=== PATIENT | female | born 1965 | race Caucasian/White ===

== ENCOUNTER → 2017-03-16 | Outpatient (CLI) | payer OTHER, MEDICARE ==
[~2017-03-16] MED LIST: CYCL-259 PO; DULO60CA7 PO; GABA300C PO; HYDR-3307 PO; LEVO75TA PO; LOPRESSOR PO; TRAM50TA2 PO
[2017-03-16 10:47] LABS: HEMATOCRIT 45.1 % (34.6-47.8); HEMOGLOBIN 15.3 g/dL (11.7-16.4); WHITE BLOOD COUNT 8.1 x10^3/uL (3.4-10)
[2017-03-16 10:50] LABS: ASPARTATE AMINO TRANSFERASE 30 U/L (15-37); BLOOD UREA NITROGEN 11 mg/dL (7-18)
== END | disposition home or self-care (01) ==
LOC: STAR 09:17
PROVIDERS: ATTEND Neurological Surgery
DX: Z01.818 Encounter for other preprocedural examination (principal); R94.31 Abnormal electrocardiogram [ECG] [EKG]; I10 Essential (primary) hypertension; J98.4 Other disorders of lung; M51.36 Other intervertebral disc degeneration, lumbar region; Z87.81 Personal history of (healed) traumatic fracture; R79.1 Abnormal coagulation profile
CPT/HCPCS: 36415; 71020; 80053; 81003; 85025; 85610; 85730; 93005

== ENCOUNTER 2017-03-22 05:38 | Inpatient (IN) | payer OTHER, MEDICARE ==
[~2017-03-22] VITALS: Ht 160 cm; Wt 98.0 kg
[2017-03-22] MEDS ORDERED: EPINEPHRINE 1 MG/ML, 1ML ONE ×2 (06:18→07:51)
[2017-03-22] MEDS ORDERED: BUPIVACAINE/PF 0.5% ONE (06:18)
[2017-03-22] MEDS ORDERED: THROMBIN 5,000 UNIT VIAL TP ONE (06:18)
[2017-03-22] MEDS ORDERED: BACITRACIN 50,000 UNIT ONE (06:19)
[2017-03-22] MEDS ORDERED: HEPARIN 1,000 UNITS/ML, 30ML ONE (06:22)
[2017-03-22 06:38] VITALS: BP 160/84
[2017-03-22] MEDS ORDERED: LIDOCAINE GEL 2%, 5ML ONE (06:41)
[2017-03-22] MEDS ORDERED: EPHEDRINE 50 MG/ML, 1ML ONE ×2 (06:47→07:51)
[2017-03-22] MEDS ORDERED: PROPOFOL 50 ML ONE ×3 (06:47→09:22)
[2017-03-22] MEDS ORDERED: FENTANYL PF 250 MCG/5ML ONE (06:47)
[2017-03-22] MEDS ORDERED: MIDAZOLAM 1 MG/ML, 2ML ONE (06:47)
[2017-03-22] MEDS ORDERED: KETAMINE 10 MG/ML, 20ML ONE (06:49)
[2017-03-22] MEDS ORDERED: LIDOCAINE-MPF 2% ,5ML ONE ×2 (06:50→08:15)
[2017-03-22] MEDS ORDERED: PROPOFOL 10 MG/ML, 20ML ONE (06:51)
[2017-03-22] MEDS ORDERED: CEFAZOLIN 1,000 MG ONE (06:51)
[2017-03-22] MEDS ORDERED: DEXAMETHASONE 4 MG/ML, 1ML ONE (06:51)
[2017-03-22] MEDS ORDERED: ONDANSETRON 2MG/ML, 2ML ONE (06:51)
[2017-03-22] MEDS ORDERED: GLYCOPYRROLATE 0.2MG/1ML, 5ML ONE (07:02)
[2017-03-22] MEDS ORDERED: ROCURONIUM 10 MG/ML,10ML ONE (07:02)
[2017-03-22] MEDS ORDERED: PHENYLEPHRINE 10 MG/ML ONE (07:51)
[2017-03-22] MEDS ORDERED: OXYcodone 5 MG/5 ML ORAL.SOL UDC PO PRN ×2 (08:00→11:00)
[2017-03-22] MEDS ORDERED: morphine SULFATE 10 MG/ML, 1ML IV PRN (08:00)
[2017-03-22] MEDS ORDERED: MEPERIDINE/PF 25MG/0.5ML IVPush PRN (08:00)
[2017-03-22] MEDS ORDERED: METOPROLOL 1 MG/ML, 5ML IV PRN (08:00)
[2017-03-22] MEDS ORDERED: MIDAZOLAM 1 MG/ML, 2ML IV PRN ×2 (08:00→11:00)
[2017-03-22] MEDS ORDERED: hydrALAzine 20 MG/ML, 1ML IV PRN (08:00)
[2017-03-22] MEDS ORDERED: LORazepam 2 MG/ML, 1ML IVPush PRN (08:00)
[2017-03-22] MEDS ORDERED: ONDANSETRON 2MG/ML, 2ML IVPush PRN ×2 (08:00→09:30)
[2017-03-22] MEDS ORDERED: ALBUTEROL/IPRATROPIUM 2.5MG/0.5MG, 3 ML NPPB PRN (08:00)
[2017-03-22] MEDS ORDERED: PROMETHAZINE 25 MG/ML, 1ML IV PRN (08:00)
[2017-03-22] MEDS ORDERED: ACETAMINOPHEN 325 MG TABLET PO PRN ×2 (08:00→11:00)
[2017-03-22] MEDS ORDERED: EPHEDRINE 50 MG/ML, 1ML IVPush PRN (08:00)
[2017-03-22] MEDS ORDERED: DIAZEPAM 5 MG/ML, 2ML IVPush PRN (08:00)
[2017-03-22] MEDS ORDERED: FENTANYL PF 100 MCG/2ML IV PRN (08:00)
[2017-03-22] MEDS ORDERED: SUCCINYLCHOLINE 20 MG/ML, 10ML ONE (08:28)
[2017-03-22] MEDS ORDERED: PHARMACY MAY ADJ FOR RENAL FX MC PRN (09:30)
[2017-03-22] MEDS ORDERED: HYDROcodone/APAP 5/325 TABLET PO PRN (09:30)
[2017-03-22] MEDS ORDERED: D5%-0.9% NACL+KCL 20MEQ 1,000 ML IV SCH (09:30)
[2017-03-22] MEDS ORDERED: MAGNESIUM HYDROXIDE 8%, 30ML UDC PO PRN (09:30)
[2017-03-22] MEDS ORDERED: PROMETHAZINE 25 MG/ML, 1ML IM PRN (09:30)
[2017-03-22] MEDS ORDERED: SENNA/DOCUSATE TABLET PO PRN (09:30)
[2017-03-22] MEDS ORDERED: DIPHENHYDRAMINE 50 MG/ML, 1ML IVPush PRN (09:30)
[2017-03-22] MEDS ORDERED: DIPHENHYDRAMINE 50 MG CAPSULE PO PRN (09:30)
[2017-03-22] MEDS ORDERED: BISACODYL 10 MG SUPP PR PRN (09:30)
[2017-03-22] MEDS ORDERED: OXYcodone/APAP 5/325MG TABLET PO PRN (09:30)
[2017-03-22] MEDS ORDERED: CYCLOBENZAPRINE 10 MG TABLET PO PRN ×2 (09:30)
[2017-03-22] MEDS ORDERED: OXYcodone 5 MG/5 ML ORAL.SOL UDC ONE (10:20)
[2017-03-22] MEDS ORDERED: FENTANYL PF 100 MCG/2ML ONE (10:21)
[2017-03-22] MEDS ORDERED: ACETAMINOPHEN 650 MG/20.3 ML UDC ONE (10:21)
[2017-03-22] MEDS: FENTANYL PF 100 MCG/2ML IV PRN ×3 (10:25→10:44)
[2017-03-22] MEDS ORDERED: morphine SULFATE 10 MG/ML, 1ML ONE (10:48)
[2017-03-22] MEDS: morphine SULFATE 10 MG/ML, 1ML IV PRN ×3 (11:13→13:15)
[2017-03-22 12:13] VITALS: BP 103/54
[2017-03-22 12:15] VITALS: BP 103/54
[2017-03-22 13:15] VITALS: BP 123/68
[2017-03-22 14:13] LABS: HEMOGLOBIN 14.1 g/dL (11.7-16.4); WHITE BLOOD COUNT 13.5 x10^3/uL (3.4-10)
[2017-03-22 14:19] LABS: BLOOD UREA NITROGEN 14 mg/dL (7-18)
[2017-03-22 14:47] LABS: ASPARTATE AMINO TRANSFERASE 33 U/L (15-37)
[2017-03-22] MEDS: GABAPENTIN 300 MG CAPSULE PO SCH ×2 (15:33→21:18)
[2017-03-22] MEDS: CEFAZOLIN PMX 1GM/50ML 50 ML IVPB SCH ×2 (15:57→23:25)
[2017-03-22] MEDS: morphine SULFATE 10 MG/ML, 1ML IVPush PRN ×2 (16:49→21:21)
[2017-03-22] MEDS ORDERED: METOPROLOL TARTRATE 50 MG TABLET ONE (21:05)
[2017-03-22] MEDS: SODIUM CHLORIDE FLUSH 10ML SYR IVF SCH (21:18)
[2017-03-22] MEDS: METOPROLOL TARTRATE 100 MG TABLET PO SCH (21:19)
[2017-03-22 21:22] VITALS: BP 127/70
[2017-03-23] VITALS (7 sets, daily range): BP systolic 98–137; BP diastolic 53–79
[2017-03-23] MEDS: morphine SULFATE 10 MG/ML, 1ML IVPush PRN (01:46)
[2017-03-23] MEDS: CEPHALEXIN 500 MG CAPSULE PO SCH ×4 (06:20→21:22)
[2017-03-23] MEDS: LEVOTHYROXINE 75 MCG TABLET PO SCH (06:20)
[2017-03-23] MEDS: ENOXAPARIN 40 MG/0.4 ML SQ SCH (06:20)
[2017-03-23] MEDS: SODIUM CHLORIDE FLUSH 10ML SYR IVF SCH ×2 (08:48→21:21)
[2017-03-23] MEDS: GABAPENTIN 300 MG CAPSULE PO SCH ×3 (08:49→21:22)
[2017-03-23] MEDS: DULOXETINE 30 MG CAPSULE.DR PO SCH (08:49)
[2017-03-23] MEDS: METOPROLOL TARTRATE 100 MG TABLET PO SCH ×2 (08:49→21:22)
[2017-03-23] MEDS: HYDROcodone/APAP 10/325 MG TABLET PO PRN ×2 (10:59→21:21)
[2017-03-24 01:19] VITALS: BP 142/80
[2017-03-24] MEDS: HYDROcodone/APAP 10/325 MG TABLET PO PRN ×3 (05:25→21:03)
[2017-03-24] MEDS: LEVOTHYROXINE 75 MCG TABLET PO SCH (05:25)
[2017-03-24] MEDS: ENOXAPARIN 40 MG/0.4 ML SQ SCH (05:25)
[2017-03-24] MEDS: CEPHALEXIN 500 MG CAPSULE PO SCH ×4 (05:25→21:03)
[2017-03-24 06:13] LABS: HEMATOCRIT 35.9 % (34.6-47.8); HEMOGLOBIN 12.2 g/dL (11.7-16.4); WHITE BLOOD COUNT 13.2 x10^3/uL (3.4-10)
[2017-03-24 06:35] LABS: BLOOD UREA NITROGEN 11 mg/dL (7-18)
[2017-03-24 07:48] VITALS: BP 114/64
[2017-03-24] MEDS: SODIUM CHLORIDE FLUSH 10ML SYR IVF SCH ×2 (08:15→21:06)
[2017-03-24] MEDS: DULOXETINE 30 MG CAPSULE.DR PO SCH (08:15)
[2017-03-24] MEDS: GABAPENTIN 300 MG CAPSULE PO SCH ×3 (08:15→21:03)
[2017-03-24] MEDS: METOPROLOL TARTRATE 100 MG TABLET PO SCH ×2 (08:15→21:03)
[2017-03-24 14:25] VITALS: BP 122/71
[2017-03-24 19:22] VITALS: BP 126/74
[2017-03-25 01:16] VITALS: BP 123/68
[2017-03-25] MEDS: ENOXAPARIN 40 MG/0.4 ML SQ SCH (05:54)
[2017-03-25] MEDS: CEPHALEXIN 500 MG CAPSULE PO SCH ×4 (05:54→21:00)
[2017-03-25] MEDS: LEVOTHYROXINE 75 MCG TABLET PO SCH (05:54)
[2017-03-25] MEDS: HYDROcodone/APAP 10/325 MG TABLET PO PRN ×3 (06:34→20:14)
[2017-03-25 07:26] LABS: HEMATOCRIT 36.8 % (34.6-47.8); HEMOGLOBIN 12.2 g/dL (11.7-16.4); WHITE BLOOD COUNT 9.5 x10^3/uL (3.4-10)
[2017-03-25 07:44] VITALS: BP 144/80
[2017-03-25] MEDS: SODIUM CHLORIDE FLUSH 10ML SYR IVF SCH ×2 (09:29→21:00)
[2017-03-25] MEDS: DULOXETINE 30 MG CAPSULE.DR PO SCH (09:30)
[2017-03-25] MEDS: GABAPENTIN 300 MG CAPSULE PO SCH ×3 (09:30→21:00)
[2017-03-25] MEDS: METOPROLOL TARTRATE 100 MG TABLET PO SCH ×2 (09:30→21:00)
[2017-03-25] MEDS ORDERED: FUROSEMIDE 20 MG/2 ML IV ONE (12:30)
[2017-03-25 15:16] VITALS: BP 136/84
[2017-03-25 20:08] VITALS: BP 162/84
[2017-03-25] MEDS: LACTATED RINGERS 1,000 ML IV SCH (23:55)
[2017-03-26] MEDS: HYDROcodone/APAP 10/325 MG TABLET PO PRN ×2 (00:11→23:21)
[2017-03-26 03:55] VITALS: BP 109/63
[2017-03-26 05:23] LABS: HEMATOCRIT 33.9 % (34.6-47.8); HEMOGLOBIN 11.5 g/dL (11.7-16.4); WHITE BLOOD COUNT 8.4 x10^3/uL (3.4-10)
[2017-03-26 05:32] LABS: BLOOD UREA NITROGEN 9 mg/dL (7-18)
[2017-03-26] MEDS: LEVOTHYROXINE 75 MCG TABLET PO SCH (05:58)
[2017-03-26] MEDS: CEPHALEXIN 500 MG CAPSULE PO SCH ×4 (05:58→21:00)
[2017-03-26] MEDS: GABAPENTIN 300 MG CAPSULE PO SCH ×3 (07:31→21:00)
[2017-03-26] MEDS: DULOXETINE 30 MG CAPSULE.DR PO SCH (07:31)
[2017-03-26] MEDS: METOPROLOL TARTRATE 100 MG TABLET PO SCH ×2 (07:56→21:00)
[2017-03-26] MEDS: SODIUM CHLORIDE FLUSH 10ML SYR IVF SCH ×3 (07:56→21:00)
[2017-03-26 07:59] VITALS: BP 139/85
[2017-03-26] MEDS: morphine SULFATE 10 MG/ML, 1ML IVPush PRN (09:13)
[2017-03-26] MEDS: METHOCARBAMOL 750 MG in DEXTROSE 5% 100 ML IV SCH ×3 (10:31→21:00)
[2017-03-26] MEDS ORDERED: ONDANSETRON 2MG/ML, 2ML ONE (14:14)
[2017-03-26] MEDS ORDERED: PROPOFOL 10 MG/ML, 20ML ONE (14:14)
[2017-03-26] MEDS ORDERED: DEXAMETHASONE 4 MG/ML, 1ML ONE (14:14)
[2017-03-26] MEDS ORDERED: FENTANYL PF 100 MCG/2ML ONE ×2 (14:14→16:39)
[2017-03-26] MEDS ORDERED: FENTANYL PF 250 MCG/5ML ONE (14:14)
[2017-03-26] MEDS ORDERED: MIDAZOLAM 1 MG/ML, 2ML ONE (14:14)
[2017-03-26] MEDS ORDERED: CEFAZOLIN 1,000 MG ONE (14:14)
[2017-03-26] MEDS ORDERED: PHENYLEPHRINE 10 MG/ML ONE (14:14)
[2017-03-26] MEDS ORDERED: ROCURONIUM 10 MG/ML,10ML ONE (14:14)
[2017-03-26] MEDS ORDERED: DIAZEPAM 5 MG/ML, 2ML IVPush PRN (15:30)
[2017-03-26] MEDS ORDERED: PROMETHAZINE 25 MG/ML, 1ML IV PRN (15:30)
[2017-03-26] MEDS ORDERED: ONDANSETRON 2MG/ML, 2ML IVPush PRN ×2 (15:30→17:00)
[2017-03-26] MEDS ORDERED: ACETAMINOPHEN 325 MG TABLET PO PRN (15:30)
[2017-03-26] MEDS ORDERED: MEPERIDINE/PF 25MG/0.5ML IVPush PRN (15:30)
[2017-03-26] MEDS ORDERED: LABETALOL 5MG/ML, 20ML IV PRN (15:30)
[2017-03-26] MEDS ORDERED: OXYcodone 5 MG/5 ML ORAL.SOL UDC PO PRN (15:30)
[2017-03-26] MEDS ORDERED: morphine SULFATE 10 MG/ML, 1ML ONE ×2 (16:39→17:55)
[2017-03-26] MEDS: FENTANYL PF 100 MCG/2ML IV PRN ×2 (16:55→17:05)
[2017-03-26] MEDS ORDERED: PHARMACY MAY ADJ FOR RENAL FX MC PRN (17:00)
[2017-03-26] MEDS ORDERED: OXYcodone/APAP 5/325MG TABLET PO PRN (17:00)
[2017-03-26] MEDS ORDERED: morphine SULFATE 10 MG/ML, 1ML IVPush PRN (17:00)
[2017-03-26] MEDS: morphine SULFATE 10 MG/ML, 1ML IV PRN ×4 (17:00→17:55)
[2017-03-26] MEDS ORDERED: METHOCARBAMOL 750 MG TABLET PO PRN (17:00)
[2017-03-26] MEDS ORDERED: HYDROcodone/APAP 5/325 TABLET PO PRN (17:00)
[2017-03-26] MEDS ORDERED: BISACODYL 10 MG SUPP PR PRN (17:00)
[2017-03-26] MEDS ORDERED: PROMETHAZINE 25 MG/ML, 1ML IM PRN (17:00)
[2017-03-26] MEDS ORDERED: LABETALOL 5MG/ML, 20ML IVPush PRN (17:00)
[2017-03-26] MEDS ORDERED: SENNA/DOCUSATE TABLET PO PRN (17:00)
[2017-03-26] MEDS ORDERED: METOPROLOL 1 MG/ML, 5ML ONE (17:48)
[2017-03-26] MEDS: METOPROLOL 1 MG/ML, 5ML IV PRN ×3 (17:50→18:15)
[2017-03-26] MEDS ORDERED: OXYcodone 5 MG/5 ML ORAL.SOL UDC ONE (18:17)
[2017-03-26 19:00] VITALS: BP 124/89
[2017-03-26] MEDS: D5%-0.9% NACL+KCL 20MEQ 1,000 ML IV SCH (19:00)
[2017-03-26] MEDS: LACTATED RINGERS 1,000 ML IV SCH (19:55)
[2017-03-26] MEDS: CEFAZOLIN PMX 1GM/50ML 50 ML IVPB SCH (22:59)
[2017-03-26 23:30] VITALS: BP 120/56
[2017-03-27] MEDS: METHOCARBAMOL 750 MG in DEXTROSE 5% 100 ML IV SCH ×4 (03:21→20:56)
[2017-03-27 03:28] VITALS: BP 114/68
[2017-03-27] MEDS: HYDROcodone/APAP 10/325 MG TABLET PO PRN ×5 (04:26→22:50)
[2017-03-27 05:20] LABS: HEMATOCRIT 31.8 % (34.6-47.8); HEMOGLOBIN 10.5 g/dL (11.7-16.4); WHITE BLOOD COUNT 11.3 x10^3/uL (3.4-10)
[2017-03-27] MEDS: LEVOTHYROXINE 75 MCG TABLET PO SCH (06:00)
[2017-03-27] MEDS: CEFAZOLIN PMX 1GM/50ML 50 ML IVPB SCH (06:35)
[2017-03-27 08:19] VITALS: BP 152/81
[2017-03-27] MEDS: DULOXETINE 30 MG CAPSULE.DR PO SCH (08:42)
[2017-03-27] MEDS: GABAPENTIN 300 MG CAPSULE PO SCH ×3 (08:43→20:57)
[2017-03-27] MEDS: SODIUM CHLORIDE FLUSH 10ML SYR IVF SCH ×2 (08:44→20:56)
[2017-03-27] MEDS: METOPROLOL TARTRATE 100 MG TABLET PO SCH ×2 (08:45→20:57)
[2017-03-27 08:46] VITALS: BP 142/74
[2017-03-27] MEDS: D5%-0.9% NACL+KCL 20MEQ 1,000 ML IV SCH ×2 (09:33→21:40)
[2017-03-27 13:24] VITALS: BP 100/63
[2017-03-27 21:02] VITALS: BP 139/71
[2017-03-28 01:32] VITALS: BP 144/75
[2017-03-28] MEDS: HYDROcodone/APAP 10/325 MG TABLET PO PRN ×3 (03:00→12:27)
[2017-03-28] MEDS: METHOCARBAMOL 750 MG in DEXTROSE 5% 100 ML IV SCH ×3 (03:00→15:00)
[2017-03-28 05:14] LABS: HEMATOCRIT 31.9 % (34.6-47.8); HEMOGLOBIN 10.6 g/dL (11.7-16.4); WHITE BLOOD COUNT 10.2 x10^3/uL (3.4-10)
[2017-03-28] MEDS: LEVOTHYROXINE 75 MCG TABLET PO SCH (05:50)
[2017-03-28 08:55] VITALS: BP 123/77
[2017-03-28] MEDS: GABAPENTIN 300 MG CAPSULE PO SCH (09:03)
[2017-03-28] MEDS: DULOXETINE 30 MG CAPSULE.DR PO SCH (09:03)
[2017-03-28] MEDS: METOPROLOL TARTRATE 100 MG TABLET PO SCH (09:03)
[2017-03-28] MEDS: SODIUM CHLORIDE FLUSH 10ML SYR IVF SCH (09:03)
[2017-03-28] MEDS: D5%-0.9% NACL+KCL 20MEQ 1,000 ML IV SCH (11:00)
[2017-03-28] MEDS ORDERED: METH750T87 PO (14:27)
[2017-03-28] MEDS ORDERED: OXYC-307 PO (14:29)
[2017-03-28 14:42] VITALS: BP 130/82
== END 2017-03-28 15:00 | disposition home or self-care (01) | DRG 454 ==
LOC: 4NOR 05:38 → 4WST 11:46 → 4NOR 03-25 19:46
PROVIDERS: ADMIT Neurological Surgery; ATTEND Neurological Surgery
PROC: 0SG30A0 Fusion of Lumbosacral Joint with Interbody Fusion Device, Anterior Approach, Anterior Column, Open Approach (ICD-10-PCS; 2017-03-22)
PROC: 4A11X4G Monitoring of Peripheral Nervous Electrical Activity, Intraoperative, External Approach (ICD-10-PCS; 2017-03-22)
PROC: 0SG00A0 Fusion of Lumbar Vertebral Joint with Interbody Fusion Device, Anterior Approach, Anterior Column, Open Approach (ICD-10-PCS; principal; 2017-03-22 07:00)
PROC: 0SG0071 Fusion of Lumbar Vertebral Joint with Autologous Tissue Substitute, Posterior Approach, Posterior Column, Open Approach (ICD-10-PCS; 2017-03-26)
PROC: 0SG3071 Fusion of Lumbosacral Joint with Autologous Tissue Substitute, Posterior Approach, Posterior Column, Open Approach (ICD-10-PCS; 2017-03-26)
PROC: 01NB0ZZ Release Lumbar Nerve, Open Approach (ICD-10-PCS; 2017-03-26)
PROC: 4A11X4G Monitoring of Peripheral Nervous Electrical Activity, Intraoperative, External Approach (ICD-10-PCS; 2017-03-26)
DX: M51.17 Intervertebral disc disorders with radiculopathy, lumbosacral region (principal); I42.1 Obstructive hypertrophic cardiomyopathy; E66.01 Morbid (severe) obesity due to excess calories; I42.2 Other hypertrophic cardiomyopathy; M48.56XA Collapsed vertebra, not elsewhere classified, lumbar region, initial encounter for fracture; M51.16 Intervertebral disc disorders with radiculopathy, lumbar region; E03.9 Hypothyroidism, unspecified; Z68.32 Body mass index [BMI] 32.0-32.9, adult; E66.9 Obesity, unspecified; M43.16 Spondylolisthesis, lumbar region; M48.061 Spinal stenosis, lumbar region without neurogenic claudication; I34.0 Nonrheumatic mitral (valve) insufficiency; I10 Essential (primary) hypertension; Z96.649 Presence of unspecified artificial hip joint; G89.29 Other chronic pain; Z68.38 Body mass index [BMI] 38.0-38.9, adult; Z88.8 Allergy status to other drugs, medicaments and biological substances; Z98.51 Tubal ligation status; Z90.89 Acquired absence of other organs
CPT/HCPCS: 36415; 71010; 72100; 72131; 74000; 80048; 80053; 82306; 82607; 83735; 84439; 84443; 85025; 85610; C1713; C1776; J0171; J0690; J1100; J1644; J1650; J2250; J2405; J2704; J3010; J3360; J3490; C1762; J0330; J2270; J2370; J2800; J3480; J7120